=== PATIENT | female | born 1990 | race Asian ===

== ENCOUNTER 2022-07-07 00:59 | Inpatient (IN) ==
[2022-07-07] MEDS ORDERED: Lactated Ringers 1000 ml BAG 1,000 ML IV ONE ×2 (03:21→04:19)
[2022-07-07] MEDS ORDERED: Buffered Lidocaine 1% SYRIN 1 ml INTRADERM ONE (03:21)
[2022-07-07 03:22] LABS: Hematocrit 35 % (35-47); Hemoglobin 12.2 g/dL (12.0-16.0); Mean Corpuscular HGB Conc 35 g/dL (31-36); Mean Corpuscular Hemoglobin 30 pg (27-31); Mean Corpuscular Volume 88 fL (80-97); Mean Platelet Volume 9.6 fL (7.4-10.4); Platelet Count 191 10^3/uL (150-450); Red Cell Distribution Width 14 % (10-15); White Blood Count 8.1 10^3/uL (3.5-10.8)
[2022-07-07] MEDS ORDERED: OBEPIDURAL (200 ML) 200 ML EPIDURAL ONE (03:34)
[2022-07-07 03:42] LABS: Urine Benzodiazepine Screen None Detected (None Detect); Urine Buprenorphine Screen None Detected (None Detect); Urine Cannabinoids Screen None Detected (None Detect); Urine Fentanyl Screen None Detected (None Detect); Urine Hydrocodone Screen None Detected (None Detect); Urine Opiates Screen None Detected (None Detect)
[2022-07-07] MEDS ORDERED: Lactated Ringers 1000 ml BAG 1,000 ML IV SCH ×4 (04:00→16:00)
[2022-07-07] MEDS ORDERED: Phenylephrine 40 mcg/mL 10mL (400mcg) SYRINGE IV PUSH PRN ×2 (04:19)
[2022-07-07] MEDS ORDERED: Sodium Citrate/Citric Acid LIQ 15 ML UDC PO PRN (04:19)
[2022-07-07] MEDS ORDERED: Lactated Ringers 1000 ml BAG 500 ML IV PRN ×2 (04:19)
[2022-07-07] MEDS ORDERED: OBEPIDURAL (200 ML) 200 ML EPIDURAL SCH (05:00)
[2022-07-07 05:10] LABS: Urine Benzodiazepine Screen None Detected (None Detect); Urine Cannabinoids Screen None Detected (None Detect); Urine Opiates Screen None Detected (None Detect)
[2022-07-07 05:56] LABS: HIV 4th Generation Nonreactive (Nonreactive)
[2022-07-07] MEDS ORDERED: Oxytocin in LR 20,000 MILLI.UNIT/1,000 ML BAG IV ONE (14:46)
[2022-07-07] MEDS ORDERED: Witch Hazel PAD JAR TOPICAL PRN (15:36)
[2022-07-07] MEDS ORDERED: Dibucaine 1% OINT 28.35 GM TUBE PR PRN (15:36)
[2022-07-07] MEDS ORDERED: ceFAZolin 1 GM ADVAN 1 GM in NS 0.9% 50 ML 50 ML IVPB ONE (15:37)
[2022-07-07] MEDS ORDERED: Oxytocin in LR 20,000 MILLI.UNIT/1,000 ML BAG IV SCH (15:45)
[2022-07-07] MEDS ORDERED: Ampicillin ADVAN 2 GM in NS 0.9% 100 ml BAG 100 ML IVPB ONE (15:55)
[2022-07-07] MEDS ORDERED: Ondansetron 4 mg VIAL 2 MG/ML 2 ml VIAL IV PRN (16:36)
[2022-07-07] MEDS ORDERED: Lidocaine 1% VIAL 10 MG/ML VIAL ONE (20:38)
[2022-07-08 06:21] LABS: ABS Lymphocytes 1.3 10^3/ul (1.0-4.8); ABS Monocytes 0.8 10^3/ul (0-0.8); ABS Neutrophils 9.7 10^3/ul (1.5-7.7); Eosinophil % 0.3 %; Hematocrit 27 % (35-47); Hemoglobin 8.6 g/dL (12.0-16.0); Lymphocyte % 11.3 %; Mean Corpuscular HGB Conc 32 g/dL (31-36); Mean Corpuscular Hemoglobin 29 pg (27-31); Mean Corpuscular Volume 88 fL (80-97); Mean Platelet Volume 8.6 fL (7.4-10.4); Platelet Count 151 10^3/uL (150-450); Red Blood Count 3.03 10^6 /uL (3.70-4.87); Red Cell Distribution Width 13 % (10-15); White Blood Count 11.9 10^3/uL (3.5-10.8)
[2022-07-09 08:42] VITALS: BP 100/63
== END 2022-07-09 11:40 | disposition home or self-care (01) | DRG 806 ==
LOC: MCHOBOUT 00:59 → MCHOB 02:31
PROVIDERS: ADMIT Midwife; ATTEND Midwife